=== PATIENT | female | born 1935 | race Caucasian/White ===

== ENCOUNTER 2017-09-16 13:43 | Outpatient (CLI) | payer OTHER | END 2017-09-16 13:54 | disposition home or self-care (01) | LOC: NUCLEAR 13:43 | DX: M81.0 Age-related osteoporosis without current pathological fracture (principal) ==

== ENCOUNTER 2017-09-16 14:37 | Outpatient (CLI) | payer OTHER | END 2017-09-16 14:41 | disposition home or self-care (01) | LOC: RAD 14:37 | DX: I10 Essential (primary) hypertension (principal) ==

== ENCOUNTER 2019-07-15 14:50 | Outpatient (CLI) | payer OTHER | END 2019-07-15 14:53 | disposition home or self-care (01) | LOC: RAD 14:50 | DX: M25.531 Pain in right wrist (principal); R60.0 Localized edema ==